=== PATIENT | male | born 2000 | race Caucasian/White ===

== ENCOUNTER 2019-04-23 17:39 | Emergency (ER) | payer SELFPAY ==
[~2019-04-23] VITALS: Ht 180.3 cm; Wt 124.7 kg
[2019-04-23] MEDS ORDERED: IBUP-1780 PO (18:45)
[2019-04-23] MEDS ORDERED: KETOROLAC 60 MG/2 ML VIAL IM ONE (18:45)
[2019-04-23] MEDS ORDERED: AMOX-358 PO (18:45)
[2019-04-23] MEDS ORDERED: TRAM50TA2 PO (18:46)
--- NOTE | 2019-04-23 18:46 | ED EENT ---
History of Present Illness General Chief Complaint: Dental Problems/Pain Stated Complaint: DENTAL PAIN Nursing Triage Note: Patient reports pain in his lower right jaw/teeth for 3 days, states he still has his wisdom teeth and he believes this may be the problem. He states he has been taking 200 mg of ibprofen every few hours, but this has not relieved his pain. Source: patient History of Present Illness Date Seen by Provider: Apr 23, 2019 Time Seen by Provider: 17:49 Initial Comments 18 yo M presenting with increasing pain over the last 3 days in his lower teeth especially on the right side. He has his wisdom teeth still and feels that maybe those are trying to come in because he can feel some partially covered teeth coming in at the back of his mouth. he has several teeth that also have some cavities present. He has no fever but has had some chills. He has tried Ibuprofen for the pain without any significant improvement. He does not have a PCP or dentist. Allergies and Home Medications Allergies Coded Allergies: latex (Verified Allergy, Unknown, 04/23/19) Home Medications Amoxicillin/Potassium Clav 1 Each Tablet, 1 EACH PO BID Prescribed by: STEPHANE GIVENS on 04/23/19 184 Ibuprofen 800 Mg Tablet, 800 MG PO Q8H PRN for PAIN Prescribed by: STEPHANE GIVENS on 04/23/19 184 Tramadol HCl 50 Mg Tablet, 50 MG PO Q6H PRN for PAIN-SEVERE Prescribed by: STEPHANE GIVENS on 04/23/19 184 Patient Home Medication List Home Medication List Reviewed: Yes Review of Systems Review of Systems Constitutional: see HPI Eyes: Denies Blurred Vision, Denies Drainage Ears: Denies Tinnitus, Denies Bloody Discharge, Denies Clear Discharge, Denies Purulent Discharge Nose: denies clots, denies congestion, denies epistaxis Mouth: denies clots; pain, swelling; denies purulent discharge Throat: no symptoms reported Respiratory: no symptoms reported Cardiovascular: no symptoms reported Gastrointestinal: no symptoms reported Musculoskeletal: no symptoms reported Skin: no symptoms reported Neurological: No Symptoms Reported Past Fgmvgnr-Teikrj-Ubyhir Hx Past Med/Social Hx: Reviewed Nursing Past Med/Soc Hx Patient Social History Alcohol Use: Denies Use Recreational Drug Use: No Smoking Status: Current Everyday Smoker Type Used: Cigarettes 2nd Hand Smoke Exposure: No Recent Foreign Travel: No Contact w/Someone Who Travel: No Recent Infectious Disease Expo: No Recent Hopitalizations: No Physical Abuse: No Sexual Abuse: No Mistreated: No Fear: No Seasonal Allergies Seasonal Allergies: No Past Medical History Surgeries: Yes (left elbow) Respiratory: Yes Asthma Cardiac: No Neurological: No Genitourinary: No Gastrointestinal: No Musculoskeletal: No Endocrine: No HEENT: No Cancer: No Psychosocial: No Integumentary: No Physical Exam Vital Signs Vital Signs - First Documented 04/23/19 17:48 Temp 97.9 Pulse 74 Resp 20 B/P (MAP) 134/74 (94) Pulse Ox 97 O2 Delivery Room Air Height, Weight, BMI Height: 5'11.00" Weight: 275lbs. oz. 124.159213ls; BMI Method:Stated General Appearance: WD/WN, no apparent distress Eyes: bilateral eye PERRL, bilateral eye EOMI, bilateral eye abnormal EOM Ears: bilateral ear TM normal Nose: No active bleeding, No dried blood, No sinus tenderness Mouth/Throat: pharynx normal, dental tenderness; No excessive drooling, No foreign body; mandibular swelling; No maxillary swelling, No pharynx swelling, No pharynx tenderness, No tongue swollen, No tonsillar swelling, No trismus, No uvula swelling Neck: non-tender, full range of motion Cardiovascular: regular rate, rhythm Respiratory: chest non-tender, lungs clear, normal breath sounds Gastrointestinal: normal bowel sounds, non tender, soft, no organomegaly Neurologic/Psychiatric: hop sorter II-XII nml as tested, no motor/sensory deficits, alert, oriented x 3 Skin: normal color, warm/dry Progress/Results/Core Measures Results/Orders My Orders Orders - STEPHANE GIVENS MD Ketorolac Injection (Toradol Injection) (04/23/19 18:45) Medications Given in ED Current Medications Medications Dose Ordered Sig/Reyna Route Start Time Stop Time Status Last Admin Dose Admin Ketorolac Tromethamine 60 mg ONCE ONCE IM 04/23/19 18:45 04/23/19 18:46 DC 04/23/19 18:53 60 MG Vital Signs/I&O 04/23/19 04/23/19 17:48 18:56 Temp 97.9 97.9 Pulse 74 74 Resp 20 20 B/P (MAP) 134/74 (94) 134/76 (95) Pulse Ox 97 97 O2 Delivery Room Air Room Air Blood Pressure Mean: 94 Progress Progress Note : Progress Note Give a dose of Toradol to help with pain and swelling. Follow-up with Augmentin antibiotics and tramadol for pain. Counseled to follow up with a dentist and be seen as soon as possible. Departure Impression Primary Impression: Impacted third molar tooth Additional Impression: Pain, dental Disposition: 01 HOME, SELF-CARE Condition: Stable Departure-Patient Inst. Decision time for Depature: 18:43 Referrals: NO,LOCAL PHYSICIAN (PCP) Primary Care Physician [facility] Patient Instructions: Impacted Tooth (DC), Dental Pain (DC) Add. Discharge Instructions: Take antibiotics until gone. Follow up with Dentist as soon as possible. Use the Ibuprofen to help with pain and inflammation. If needed use the stronger pain medicine to help you rest and when you know that you are not going to have to drive or operate equipment. All discharge instructions reviewed with patient and/or family. Voiced understanding. Scripts Tramadol HCl (Tramadol HCl) 50 Mg Tablet 50 MG PO Q6H PRN for PAIN-SEVERE for 3 Days, #12 TAB 0 Refills Prov: STEPHANE GIVENS MD 04/23/19 Ibuprofen (Ibuprofen) 800 Mg Tablet 800 MG PO Q8H PRN for PAIN for 10 Days, #30 TAB 0 Refills Prov: STEPHANE GIVENS MD 04/23/19 Amoxicillin/Potassium Clav (Augmentin 875-125 Tablet) 1 Each Tablet 1 EACH PO BID for 10 Days, #20 TAB 0 Refills Prov: STEPHANE GIVENS MD 04/23/19 STEPHANE GIVENS MD Apr 23, 2019 18:46
[2019-04-23 18:56] VITALS: BP 134/76
== END 2019-04-23 18:58 | disposition home or self-care (01) ==
LOC: ER FS 17:41
DX: K01.1 Impacted teeth (principal); F17.210 Nicotine dependence, cigarettes, uncomplicated; J45.909 Unspecified asthma, uncomplicated
CPT/HCPCS: 99284

== ENCOUNTER 2020-05-17 23:35 | Emergency (ER) | payer SELFPAY ==
[~2020-05-17] VITALS: Ht 180 cm; Wt 102.0 kg
[~2020-05-17 23:35] MED LIST: AMOX-358 PO; IBUP-1780 PO; TRM50T PO
[2020-05-17] MEDS ORDERED: LIDOCAINE 1% INJ 20 ML 20 ML VIAL ONE (23:43)
[2020-05-18] MEDS ORDERED: LIDOCAINE 1% INJ 20 ML 20 ML VIAL INJ ONE
--- NOTE | 2020-05-18 | ED Upper Extremity ---
General Chief Complaint: Laceration Stated Complaint: LAC TO RIGHT HAND History of Present Illness Date Seen by Provider: May 17, 2020 Time Seen by Provider: 23:45 Initial Comments The patient is a 19-year-old otherwise healthy right-hand dominant male who presents for evaluation of lacerations to his hand sustained just prior to arrival. Patient states that he had "a lot of liquor to drink" and then accidentally broke a window and was trying to fix it when he cut himself. He sustained 2 linear, well approximated lacerations to the ulnar aspect of his right palm. No other injuries during the episode. He is alert and oriented and pleasantly and appropriately interactive and ambulates with a narrow, steady gait, though he smells of alcohol and appears mildly intoxicated. No therapy prior to arrival. Tetanus is up-to-date. Allergies and Home Medications Allergies Coded Allergies: latex (Verified Allergy, Unknown, 04/23/19) Home Medications Amoxicillin/Potassium Clav 1 Each Tablet, 1 EACH PO BID Prescribed by: STEPHANE GIVENS on 04/23/191844 Ibuprofen 800 Mg Tablet, 800 MG PO Q8H PRN for PAIN Prescribed by: STEPHANE GIVENS on 04/23/191844 Tramadol HCl 50 Mg Tablet, 50 MG PO Q6H PRN for PAIN-SEVERE Prescribed by: STEPHANE GIVENS on 04/23/191845 [ibuprofen 600mg tab] , 1 TAB PO Q6H Prescribed by: MAXINE BOB on 05/18/20 0001 Patient Home Medication List Home Medication List Reviewed: Yes Review of Systems Constitutional: see HPI All Other Systems Reviewed Negative Unless Noted: Yes (Negative excepted noted.) Past Loexwvv-Tdgwzx-Bagcry Hx Past Med/Social Hx: Reviewed Nursing Past Med/Soc Hx Patient Social History Alcohol Use: Occasionally Uses Recreational Drug Use: No Type Used: Cigarettes 2nd Hand Smoke Exposure: No Recent Foreign Travel: No Contact w/Someone Who Travel: No Recent Hopitalizations: No Seasonal Allergies Seasonal Allergies: No Past Medical History Surgeries: Yes (left elbow) Respiratory: Yes Asthma Cardiac: No Neurological: No Genitourinary: No Gastrointestinal: No Musculoskeletal: No Endocrine: No HEENT: No Cancer: No Psychosocial: No Integumentary: No Family Medical History Reviewed Nursing Family Hx Physical Exam Vital Signs Vital Signs - First Documented 05/17/20 23:40 Temp 37.0 Pulse 57 Resp 16 B/P (MAP) 125/77 (93) Pulse Ox 98 O2 Delivery Room Air Capillary Refill : Height, Weight, BMI Height: 5'11.00" Weight: 275lbs. oz. 124.108500bq; BMI Method:Stated General Appearance: no apparent distress This is a young male appearing nontoxic and in no acute distress. He smells of alcohol. Head is normocephalic and atraumatic. Neck is supple and nontender. Oropharynx is moist. Lungs are clear to auscultation at all stations. There is a normal S1 and S2 without rubs or gallops and capillary refill is appropriate, less than 2 seconds globally. Abdomen is soft, nontender and nondistended. Skin is warm and dry without cyanosis, clubbing or edema. Psychiatrically, the patient demonstrated appropriate mood and affect and is alert. Examination of the right upper extremity is remarkable for 2 transversely oriented linear well approximated hemostatic lacerations to the ulnar aspect of the right palm. These are both about 2 cm in length. No other signs of injury to the right upper extremity. No limitation in flexion or extension at any joint of the right upper extremity. Right upper extremity is neurovascularly intact distally with strength 5 out of 5, sensation intact to light touch in median, radial and ulnar nerve distributions, radial pulse 2+, capillary refill less than 2 seconds, hand warm and well-perfused. Procedures/Interventions Wound Location: Other Other Wound Location R hand Wound's Depth, Shape: linear, sub Q Wound Explored: clean Irrigated w/ Saline (ccs): 1000 Betadine Prep?: Yes Anesthesia: 1% Lidocaine Volume Anesthetic (ccs): 10 Suture: Ethlion Suture Size: 4-0 Number of Sutures: 10 Layer Closure?: 1 Progress Tolerated well; no complications Progress/Results/Core Measures Results/Orders My Orders Orders - MAXINE BOB MD Lidocaine 1% Inj 20 Ml (Xylocaine 1% Inj (05/17/20 23:43) Lidocaine 1% Inj 20 Ml (Xylocaine 1% Inj (05/18/20 00:00) Hand 3 View Right (05/17/20 23:53) Haloperidol Injection (Haldol Injectio (05/18/20 00:07) Lorazepam Injection (Ativan Injection) (05/18/20 00:07) Medications Given in ED Current Medications Medications Dose Ordered Sig/Reyna Route Start Time Stop Time Status Last Admin Dose Admin Lidocaine HCl 20 ml ONCE ONCE INJ 05/18/20 00:00 05/18/20 00:01 DC 05/17/20 23:57 20 ML Vital Signs/I&O 05/17/20 23:40 Temp 37.0 Pulse 57 Resp 16 B/P (MAP) 125/77 (93) Pulse Ox 98 O2 Delivery Room Air Progress Progress Note : Time: 23:58 Progress Note Will copiously wash out and disinfect lacerations and will obtain plain films to ensure no retained foreign bodies and will plan for repair with suture. Patient understands and agrees with this plan of care. 0035: laceration repaired without complication as per procedure note; pt tolerated well. Will discharge as per plan above. Return 7-10 days for suture removal, before then as needed with any concerns. Diagnostic Imaging Comments XR R hand: no acute fracture, no retained FB noted, EP interp Departure Impression Primary Impression: Laceration of right palm without complication Qualified Codes: S61.411A - Laceration without foreign body of right hand, initial encounter Disposition: HOME, SELF-CARE Condition: Improved Departure-Patient Inst. Referrals: NO,LOCAL PHYSICIAN (PCP/Family) Primary Care Physician Patient Instructions: Laceration Repair With Stitches (DC) Add. Discharge Instructions: Follow-up with your primary care doctor in the office or return to this emergency department in 7-10 days for removal of your stitches. You may wash the area with gentle soap and water but don't scrub. Apply Neosporin twice a day to the lacerations to prevent infection. You may take ibuprofen up to 600 mg at a time as needed for pain, every 6 hours. Return to the emergency department right away with worsening redness, warmth, swelling, drainage to the site or with any other new symptoms of concern. Scripts [ibuprofen 600mg tab] No Conflict Check 1 TAB PO Q6H for Pain, #30 TAB Prov: MAXINE BOB MD 05/18/20 MAXINE BOB MD May 18, 2020 00:00
[2020-05-18] MEDS ORDERED: ibuprofen 600mg tab PO (00:01)
[2020-05-18] MEDS ORDERED: HALOPERIDOL 5 MG/ML (HALDOL) VIAL ONE (00:07)
[2020-05-18] MEDS ORDERED: LORazepam INJ 2 MG/ML (ATIVAN) VIAL ONE (00:07)
[2020-05-18] MEDS ORDERED: ACETAMINOPHEN 500 MG TAB (TYLENOL) PO ONE (01:00)
[2020-05-18 01:01] VITALS: BP 125/77
--- NOTE | 2020-05-18 07:08 | Diagnostic Imaging Report ---
CLINICAL INDICATION: Patient lacerated hand with broken glass. Assess for retained foreign body. EXAM: X-ray of the right hand, 3 views. COMPARISON: None. FINDINGS: There is no acute fracture or dislocation. There is no significant bone or joint abnormality. There is no radiodense foreign object seen. IMPRESSION: There is no acute fracture or dislocation. There is no radiodense foreign object seen. Dictated by: Dictated on workstation # [id number]
== END 2020-05-18 01:02 | disposition home or self-care (01) ==
LOC: EDUNIT# 23:35 → ER FS 23:39
DX: S61.411A Laceration without foreign body of right hand, initial encounter (principal); Z91.040 Latex allergy status; W25.XXXA Contact with sharp glass, initial encounter
CPT/HCPCS: 12001; 73130